=== PATIENT | male | born 1955 | race Caucasian/White ===

== ENCOUNTER → 2022-09-06 09:51 | Outpatient (BNVA) | payer MEDICARE, OTHER, SELFPAY | PROVIDERS: PCP Psychiatry & Neurology Neurology; Visit Provider Nurse Practitioner Family | DX: G20 Parkinson's disease (principal); R41.3 Other amnesia; M19.90 Unspecified osteoarthritis, unspecified site; Z79.899 Other long term (current) drug therapy | CPT/HCPCS: 99202 ==

== ENCOUNTER → 2023-02-02 07:56 | Outpatient (BNVA) | payer MEDICARE, OTHER, SELFPAY | PROVIDERS: Visit Provider Nurse Practitioner Family | DX: G20 Parkinson's disease (principal); G47.52 REM sleep behavior disorder; G47.62 Sleep related leg cramps | CPT/HCPCS: 99212 ==

== ENCOUNTER 2023-06-07 08:00 | Outpatient (AMB) | payer MEDICARE, OTHER, SELFPAY ==
--- NOTE | 2023-06-07 08:03 | MHC.OFFVIS ---
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 Allergies Iodinated Contrast Media Allergy (Severe, Verified 06/07/23 08:05) Anaphylaxis Suxamethonium chloride Allergy (Severe, Uncoded 06/07/23 08:05) Unknown Medication List - Last Reconciled 06/07/23 by ALVARO Luo bupropion HCl 300 mg PO QAM 30 days carbidopa-levodopa 23.75-95 mg ER (Rytary) 3 caps PO TID 90 days gabapentin 300 mg PO BID 90 days magnesium oxide 400 mg PO BEDTIME 30 days meloxicam 15 mg PO DAILY metoprolol succinate ER 50 mg PO DAILY omeprazole 20 mg PO DAILY 90 days pramipexole 0.125 - 0.25 mg (1 - 2 x 0.125 mg) PO TID 180 days HPI HPI Comments History of Present Illness Details 67-yr-old male presents for f/u visit. Pt denies any significant interval medical history changes. Pt was started on Meloxicam, which has been helping with his joint pain Pt's current PD medication regimen: Rytary 23.75-95mg 3 caps tid and Pramipexole 0.125-0.25mg po tid. ADL's: Ind Swallowing: rarely may cough when eating Drooling: none Orthostatic lightheadedness: none Constipation: Yes, managing w/ Miralax qod- however it can cause bothersome loose stools. Freezing: Denies Stiffness: Better Tremor: Very mild Falls: None Hallucinations: None Memory: He states terrible- more so STM, loses his train of thought- more frequent. Sometimes he has difficulty w/ certain exercises at his PD class- elena stepping in/out of the ladder. Sleep: Sleeping ok. The leg symptoms are better since increasing the Pramipexole. Exercise: Doing the [facility] PD exercise class. Plans to do a [employer] boxing class at the [facility]. [facility] Medical History HTN (hypertension) Psoriasis Surgical History H/O lumbosacral spine surgery History of hip surgery Hx laparoscopic cholecystectomy Family History Mother Uterine cancer Daughter Thyroid cancer Father Lung cancer Social History (Updated 06/07/23 @ 08:07 by Karla Thibodeaux CMA) Alcohol intake: current Alcohol intake frequency: holidays/special occasions only Patient Tobacco Use Status: Former Tobacco user Quit Date: approx 20 years ago Review of Systems Const All systems reviewed & are unremarkable except as noted in HPI and below Physical Exam Vital Signs: Last Vital Signs Pulse 71 06/07/23 08:08 BP 118/70 06/07/23 08:08 Pulse Ox 97 06/07/23 08:08 Oxygen Delivery Method Room Air 06/07/23 08:08 Const General: cooperative and no acute distress Resp Effort & Inspection: normal respiratory effort and able to speak in complete sentences Neuro Other: Expression: Mild decreased expression and blink Voice: Soft voice Tremor: No postural tremor today. Tone: BUE tone, more so in RUE. Right hand atrophy and posturing. Dyskinesia: None FFM: Bradykineisa, more so on right Foot taps: Bradykinesia, more so on right Gait: Stands ok, slight stoop, decreased arm swing- more so on right, steps ok but low floor clearance, overall steady gait. Psych: Pleasant affect. General: oriented to person, oriented to place and oriented to time Assessment & Plan Assessment & Plan (1) Parkinson's disease: Code(s): G20 - Parkinson's disease (2) Constipation: Code(s): K59.00 - Constipation, unspecified (3) Poor short-term memory: Code(s): R41.3 - Other amnesia Plan Continue Rytary 23.75-95mg- 3 caps po TID Continue magnesium 400mg qhs- for leg cramps. Continue Pramipexole 0.125-0.25mg po tid- 3 hrs before bed, 1 hr before bed, and at bedtime. Continue Gabapentin 300mg bid. May adjust Miralx to 1/2 - 3/4 capful qd-qod- in hopes this alleviates excess loss stools. Continue regular exercise, including PD exercise classes. Will f/u on order for baseline neuropsych testing. f/u in 3-4 months or sooner prn Medications: Refilled bupropion HCl 300 mg PO QAM 30 tabs 3RF 30 days Coding Level of Care Code Est Pt Level 4 (40490) Diagnoses Parkinson's disease G20 Constipation K59.00 Poor short-term memory R41.3
[2023-06-07 08:08] VITALS: BP 118/70; PULSE 71; O2SAT 97
== END 2023-06-07 08:50 | disposition home or self-care (01) ==
PROVIDERS: Visit Provider Nurse Practitioner Family
DX: G20 Parkinson's disease (principal); K59.00 Constipation, unspecified; R41.3 Other amnesia
CPT/HCPCS: 99214

== ENCOUNTER → 2023-06-07 08:00 | Outpatient (BNVA) | payer MEDICARE, OTHER, SELFPAY | PROVIDERS: Visit Provider Nurse Practitioner Family | DX: G20 Parkinson's disease (principal); K59.00 Constipation, unspecified; R41.3 Other amnesia; Z79.899 Other long term (current) drug therapy | CPT/HCPCS: 99212 ==

== ENCOUNTER 2023-10-06 07:59 | Outpatient (AMB) | payer MEDICARE, OTHER, SELFPAY ==
--- NOTE | 2023-10-06 08:03 | MHC.OFFVIS ---
Intake Vital Signs 10/06/23 08:04 Height 6 ft 1 in Weight 208 lb BMI 27.4 BP 126/78 Blood Pressure Location Rt brachial Position Sitting Pulse 74 Pulse Source Pulse Oximeter Pulse Oximetry (%) 97 Oxygen Delivery Method Room Air Intake Visit Reasons: 4m follow up parkinsons/ Confirmed Intake Note: Patient presents for 4 month follow up.my neuropathy on my feet is getting worst and my balance is off. Allergies Iodinated Contrast Media Allergy (Severe, Verified 10/06/23 08:06) Anaphylaxis Suxamethonium chloride Allergy (Severe, Uncoded 10/06/23 08:06) Unknown Medication List - Last Reconciled 10/06/23 by ALVARO Luo bupropion HCl 300 mg PO QAM 30 days carbidopa-levodopa 23.75-95 mg ER (Rytary) 3 caps PO TID 90 days gabapentin 300 mg PO BID 90 days magnesium oxide 400 mg PO BEDTIME 30 days meloxicam 15 mg PO DAILY metoprolol succinate ER 50 mg PO DAILY omeprazole 20 mg PO DAILY 90 days pramipexole 0.125 - 0.25 mg (1 - 2 x 0.125 mg) PO BID 180 days HPI HPI Comments History of Present Illness Details 68-yr-old male presents for f/u visit, accompnaied by his . Pt reports the following interval medical history changes: He had a recent ER eval for chest pain- work-up and f/u cardiology eval- was negtaive for cardiogenic cause. Pt's current PD medication regimen: Rytary 23.75-95mg- 3 caps po TID, Pramipexole 0.125mg po bid- 3 hrs before bed and at bedtime. Do medication effects last between doses: yes Pt's primary concerns are: Feels his neuropathy is worse- BLE mid-calf to toes feels cold to the touch. BLE, more so left, can feel like his foot is sliding/moving but is not. Is having numbing pain. ADL's: Ind Swallowing: No current issues Drooling: very mild Orthostatic lightheadedness: no orthostatic lightheadedness, but sometimes when standing for a while he can feel off. Constipation: Yes, managing w/ Miralax prn. Freezing: Denies Stiffness: Does have stiffness Tremor: Rarely mild Falls: None Hallucinations: None Memory: He states his STM is poor. Sleep: Sleeping ok. The leg symptoms are better since increasing the Pramipexole. Exercise: Doing the [facility] PD exercise class. Was able to find a PD class when at the [facility]- did a upside down bike/cognitive tx. [facility] Medical History (Updated 10/06/23 @ 20:31 by ALVARO Luo) Parkinson's disease Psoriasis HTN (hypertension) Surgical History History of hip surgery Hx laparoscopic cholecystectomy H/O lumbosacral spine surgery Family History Mother Uterine cancer Daughter Thyroid cancer Father Lung cancer Social History Alcohol intake: current Alcohol intake frequency: holidays/special occasions only Patient Tobacco Use Status: Former Tobacco user Quit Date: approx 20 years ago Review of Systems Const All systems reviewed & are unremarkable except as noted in HPI and below Physical Exam Vital Signs: Last Vital Signs Pulse 74 10/06/23 08:04 BP 126/78 10/06/23 08:04 Pulse Ox 97 10/06/23 08:04 Oxygen Delivery Method Room Air 10/06/23 08:04 BMI result Body Mass Index 27.4 Const General: cooperative and no acute distress Resp Effort & Inspection: normal respiratory effort and able to speak in complete sentences Neuro Other: General A&O x's Expression: Mild decreased expression and blink Voice: Soft voice Tremor: No postural tremor today. Tone: BUE tone, more so in RUE. Right hand atrophy and posturing. Dyskinesia: None FFM: Bradykineisa, more so on right Foot taps: Bradykinesia, more so on right Gait: Stands ok, slight stoop, decreased arm swing- more so on right, low floor clearance, overall steady gait. Psych: Pleasant affect. Assessment & Plan Assessment & Plan (1) Parkinson's disease without dyskinesia: Code(s): G20.A1 - Parkinson's disease without dyskinesia, without mention of fluctuations (2) Constipation: Code(s): K59.00 - Constipation, unspecified (3) Nocturnal leg cramps: Code(s): G47.62 - Sleep related leg cramps (4) REM sleep behavior disorder: Code(s): G47.52 - REM sleep behavior disorder (5) Poor short-term memory: Code(s): R41.3 - Other amnesia (6) Peripheral neuropathy: Code(s): G62.9 - Polyneuropathy, unspecified Plan Continue Rytary 23.75-95mg- 3 caps po TID Continue magnesium 400mg qhs- for leg cramps. Continue Pramipexole 0.125-0.25mg po bid- 3 hrs before bed and at bedtime. Continue Gabapentin 300mg bid. Continue Miralx to 1/2 - 3/4 capful qd-qod prn constipation. May trial OTC Nervive/Alpha-lipoic acid for neuropathy s/s Try to keep core warm and use warmer socks etc to decrease peripheral coldness. Continue regular exercise, including PD exercise classes. Baseline neuropsych testing as scheduled in Nov 2023. ? f/u in 4 months or sooner prn Medications: Changed From pramipexole 3 hrs before bed, 1 hr before bed, and at bedtime 0.125 - 0.25 mg (1 - 2 x 0.125 mg) PO TID 180 days 180 tabs 3RF To pramipexole 3 hrs before bed and at bedtime 0.125 - 0.25 mg (1 - 2 x 0.125 mg) PO BID 180 days 180 tabs 3RF Coding Level of Care Code Est Pt Level 4 (57250) Diagnoses Parkinson's disease without dyskinesia G20.A1 Constipation K59.00 Nocturnal leg cramps G47.62 REM sleep behavior disorder G47.52 Poor short-term memory R41.3 Peripheral neuropathy G62.9
[2023-10-06 08:04] VITALS: BP 126/78; PULSE 74; O2SAT 97; BMI 27.4
== END 2023-10-06 08:54 | disposition home or self-care (01) ==
PROVIDERS: Visit Provider Nurse Practitioner Family
DX: G20.A1 Parkinson's disease without dyskinesia, without mention of fluctuations (principal); K59.00 Constipation, unspecified; G47.62 Sleep related leg cramps; G47.52 REM sleep behavior disorder; R41.3 Other amnesia; G62.9 Polyneuropathy, unspecified
CPT/HCPCS: 99214

== ENCOUNTER → 2023-10-06 07:59 | Outpatient (BNVA) | payer MEDICARE, OTHER, SELFPAY | PROVIDERS: Visit Provider Nurse Practitioner Family | DX: G20.A1 Parkinson's disease without dyskinesia, without mention of fluctuations (principal); K59.00 Constipation, unspecified; G47.62 Sleep related leg cramps; G47.52 REM sleep behavior disorder; G62.9 Polyneuropathy, unspecified; R41.3 Other amnesia | CPT/HCPCS: 99212 ==

== ENCOUNTER 2024-03-01 07:52 | Outpatient (AMB) | payer MEDICARE, OTHER, SELFPAY ==
--- NOTE | 2024-03-01 07:58 | MHC.OFFVIS ---
Vital Signs 03/01/24 07:59 Height 6 ft 1 in Weight 206 lb BMI 27.2 BP 120/74 Blood Pressure Location Rt brachial Position Sitting Pulse 71 Pulse Source Pulse Oximeter Pulse Oximetry (%) 96 Oxygen Delivery Method Room Air Intake Visit Reasons: 4m follow up parkinsons-CONF Intake Note: Patient presents for 4 month follow up parkinson's Allergies Iodinated Contrast Media Allergy (Severe, Verified 03/01/24 08:05) Anaphylaxis Suxamethonium chloride Allergy (Severe, Uncoded 03/01/24 08:05) Unknown HPI Comments Details: 68-yr-old male presents for f/u visit. Pt is accompanied by his . Pt denies any significant interval medical history changes. Pt's primary concerns are: Feels that the Rytary makes him off-balance. Pt's current PD medication regimen: Rytary 23.75-95mg- 3 caps po TID, Pramipexole 0.125mg po bid- 3 hrs before bed and at bedtime. Do medication effects last between doses: does not notice. Neuro-psych eval results were c/w MCI. ADL's: Ind. Some difficulty w/ putting a letter in an envelope or tying a trash bag. Swallowing: No current issues Drooling: very mild Orthostatic lightheadedness: no orthostatic lightheadedness, but sometimes when standing for a while he can feel off. Constipation: Yes, managing w/ Miralax prn. Freezing: Once- woke up dizzy and felt like his feet were stuck. Stiffness: Does have stiffness. Noticing right hand posturing more. Tremor: Rarely mild Falls: None Hallucinations: None Memory: He states his STM is poor. Some Sleep: Sleeping ok. Can have some leg cramps. Can sometimes have breakthrough restless legs when watching TV. Exercise: Doing the [facility] PD exercise class. Will be returning to the [facility]- will do a PD class when at the [facility]- did a upside down bike/cognitive tx. [facility] Medical History (Updated 03/01/24 @ 09:03 by ALVARO Luo) Parkinson's disease Psoriasis HTN (hypertension) Surgical History History of hip surgery Hx laparoscopic cholecystectomy H/O lumbosacral spine surgery Family History Mother Uterine cancer Daughter Thyroid cancer Father Lung cancer Social History Alcohol intake: current Alcohol intake frequency: holidays/special occasions only Patient Tobacco Use Status: Former Tobacco user Quit Date: approx 20 years ago Review of Systems Const All systems reviewed & are unremarkable except as noted in HPI and below Physical Exam Vital Signs: Last Vital Signs Pulse 71 03/01/24 07:59 BP 120/74 03/01/24 07:59 Pulse Ox 96 03/01/24 07:59 Oxygen Delivery Method Room Air 03/01/24 07:59 BMI result Body Mass Index 27.2 Const General: cooperative and no acute distress Resp Effort & Inspection: normal respiratory effort and able to speak in complete sentences Neuro Other: General A&O x's Expression: Mild decreased expression and blink Voice: Soft voice Tremor: No postural tremor today. Tone: BUE tone, more so in RUE. Right hand atrophy and posturing. Dyskinesia: None FFM: Bradykineisa, more so on right Foot taps: Bradykinesia, more so on right Gait: Stands ok, slight stoop, decreased arm swing- more so on right, low floor clearance, overall steady gait. Psych: Pleasant affect. Assessment & Plan Assessment & Plan (1) Parkinson's disease without dyskinesia: Code(s): G20.A1 - Parkinson's disease without dyskinesia, without mention of fluctuations Category: Medical (2) REM sleep behavior disorder: Code(s): G47.52 - REM sleep behavior disorder Category: Medical (3) Restless leg syndrome: Code(s): G25.81 - Restless legs syndrome Category: Medical (4) MCI (mild cognitive impairment): Code(s): G31.84 - Mild cognitive impairment of uncertain or unknown etiology Category: Medical Plan May try adjusting Rytary 23.75-95mg- from 3 caps po TID to 2 caps tid-qid- in hope sthis reduces off-balance sensation. Monitor for worsening stiffness, right hand posturing. Continue magnesium 400mg qhs- for leg cramps. Continue Pramipexole 0.125-0.25mg po bid- 3 hrs before bed and at bedtime. Continue Gabapentin 300mg qhs. Continue Miralx to 1/2 - 3/4 capful qd-qod prn constipation. May trial OTC Nervive/Alpha-lipoic acid for neuropathy s/s Try to keep core warm and use warmer socks etc to decrease peripheral coldness. Continue regular exercise, including PD exercise classes. Future considerations- hand/OT tx for right hand. ? f/u in 4 months or sooner prn Coding Level of Care Code Est Pt Level 4 (16255) Diagnoses Parkinson's disease without dyskinesia G20.A1 REM sleep behavior disorder G47.52 Restless leg syndrome G25.81 MCI (mild cognitive impairment) G31.84
[2024-03-01 07:59] VITALS: BP 120/74; PULSE 71; O2SAT 96; BMI 27.2
== END 2024-03-01 09:05 | disposition home or self-care (01) ==
PROVIDERS: Visit Provider Nurse Practitioner Family
DX: G20.A1 Parkinson's disease without dyskinesia, without mention of fluctuations (principal); G47.52 REM sleep behavior disorder; G25.81 Restless legs syndrome; G31.84 Mild cognitive impairment of uncertain or unknown etiology
CPT/HCPCS: 99214

== ENCOUNTER → 2024-03-01 07:52 | Outpatient (BNVA) | payer MEDICARE, OTHER, SELFPAY | PROVIDERS: Visit Provider Nurse Practitioner Family | DX: G20.A1 Parkinson's disease without dyskinesia, without mention of fluctuations (principal); G47.52 REM sleep behavior disorder; G25.81 Restless legs syndrome; G31.84 Mild cognitive impairment of uncertain or unknown etiology | CPT/HCPCS: 99212 ==

== ENCOUNTER 2024-09-18 08:10 | Outpatient (AMB) | payer MEDICARE, OTHER, SELFPAY ==
--- NOTE | 2024-09-18 09:18 | MHC.OFFVIS ---
Vital Signs 09/18/24 09:20 Height 6 ft 1 in Weight 206 lb BMI 27.2 BP 122/88 Blood Pressure Location Rt brachial Position Sitting Pulse 73 Pulse Source Pulse Oximeter Pulse Oximetry (%) 96 Oxygen Delivery Method Room Air Intake Visit Reasons: 7 Month F/U Accompanied by: Spouse Allergies Iodinated Contrast Media Allergy (Severe, Verified 09/18/24 09:23) Anaphylaxis Suxamethonium chloride Allergy (Severe, Uncoded 03/01/24 08:05) Unknown Medication List - Last Reconciled 09/18/24 by ALVARO Luo bupropion HCl XL 300 mg PO QAM 90 days carbidopa-levodopa 23.75-95 mg ER (Rytary) 3 caps PO QID 90 days gabapentin 300 mg PO BID 90 days magnesium oxide 400 mg PO BEDTIME PRN 90 days meloxicam 15 mg PO DAILY metoprolol succinate ER 50 mg PO DAILY omeprazole 20 mg PO DAILY 90 days pramipexole 0.125 - 0.25 mg (1 - 2 x 0.125 mg) PO BID 90 days Do you need a note to return to daycare/school/sports/work: No HPI Comments Details: Left-handed 68-yr-old male presents for f/u visit. Pt is accompanied by his . Pt has a bad case of Covid-19 in May- saw urgent care- was given a course of Plaxlovid. He was weak, shakier. Took him at least weeks to return to baseline. He is now living at the [facility] 8 months of the year. He has had increased right shoulder pain- has seen DR Ulloa at [facility]- was advised he will likely need a shoulder replacement. He has noticed more right hand finger curling. This has limited his ability to do some of his PD exercises such as the [employer] boxing class. He also had a bout of feeling like his legs were wrapped in saran wrap. He saw Dr. Garcia at his clinic at the [facility], was advised to consider nerve conduction study. Patient is considering. Patient does still have some numbness on the lower part of feet. The sensation that his feet are wrapped is intermittent. He is compliant with gabapentin 300 mg twice a day. He did start Nervive nerve relief- which she found beneficial, he stopped as he was worried about taking so many medications. In terms of his Parkinson's, patient reports: Current PD medication regimen: Rytary 23.75-95mg- 3 caps po TID or QID- depending on the day, Pramipexole 0.125mg po bid- 3 hrs before bed and at bedtime. ADL's: Ind. Some difficulty w/ putting his pants on. Swallowing: No current issues Drooling: very mild Orthostatic lightheadedness: no orthostatic lightheadedness Constipation: Yes, managing w/ Miralax prn. Freezing: Denies Stiffness: Everything is stiff. Occasional leg spasms. Noticing right hand posturing more. Tremor: Rarely mild Falls: He had a fall- going over a small retaining wall while wearing water shoes- his hip was a bit sore in sharif am. Hallucinations: None. Has had an episode fo feeling like his hand or feet are moving but they were not. Memory: He would like to discuss the neuropsych results. He states his STM is poor. Cognitive tasking activities, such as balancing his check book, is more challenging. Sleep: Sleeping ok. Can have some leg cramps. Can sometimes have breakthrough restless legs when watching TV. Exercise: Doing PD exercises at home. [facility] Medical History Parkinson's disease Psoriasis HTN (hypertension) Surgical History History of hip surgery Hx laparoscopic cholecystectomy H/O lumbosacral spine surgery Family History Mother Uterine cancer Daughter Thyroid cancer Father Lung cancer Social History Alcohol intake: current Alcohol intake frequency: holidays/special occasions only Patient Tobacco Use Status: Former Tobacco user Physical Exam Vital Signs: Last Vital Signs Pulse 73 09/18/24 09:20 BP 122/88 09/18/24 09:20 Pulse Ox 96 09/18/24 09:20 Oxygen Delivery Method Room Air 09/18/24 09:20 BMI result Body Mass Index 27.2 Const General: cooperative and no acute distress Resp Effort & Inspection: normal respiratory effort and able to speak in complete sentences Neuro Other: General A&O x's Expression: Mild decreased expression and blink Voice: Soft voice Tremor: No rest or postural tremor today. Tone: BUE tone, more so in RUE. Right hand atrophy and fingers posturing in flexion- which do extend with active range of motion. Dyskinesia: None FFM: Bradykineisa, more so on right Foot taps: Bradykinesia, more so on right Gait: Stands ok, slight stoop, decreased arm swing- more so on right, low floor clearance, overall steady gait. Psych: Pleasant affect. Assessment & Plan Assessment & Plan (1) Parkinson's disease without dyskinesia: Code(s): G20.A1 - Parkinson's disease without dyskinesia, without mention of fluctuations Category: Medical (2) REM sleep behavior disorder: Code(s): G47.52 - REM sleep behavior disorder Category: Medical (3) Restless leg syndrome: Code(s): G25.81 - Restless legs syndrome Category: Medical (4) MCI (mild cognitive impairment): Comment: Neuro-psych eval results were c/w MCI. Code(s): G31.84 - Mild cognitive impairment of uncertain or unknown etiology Category: Medical Plan Increase Rytary 23.75-95mg- from 3 caps po TID to 3 caps q.i.d.- in hopes this lessens stiffness, right hand posturing, and possible mild bradyphrenia symptoms. Continue magnesium 400mg, may take qhs p.r.n.- for leg cramps. Continue Pramipexole 0.125-0.25mg po bid- 3 hrs before bed and at bedtime. Continue Gabapentin 300mg b.i.d. Continue bupropion XL 300 mg q.a.m. Continue Miralx to 1/2 - 3/4 capful qd-qod prn constipation. Resume OTC Nervive/Alpha-lipoic acid, as this was previously beneficial for BLE neuropathy s/s. Reviewed previous neuro psych results of MCI, including diagnosis and strategies to reduce progression, such as optimizing cardiovascular risk factors, engaging in regular social and cognitive stimulating activities, and continuing to exercise on a regular basis. Continue regular exercise, including PD exercise classes. Patient advised to check the [place] Parkinson disease association website to find an up-to-date list of local PD exercise classes. Will refer patient for OT eval and treat of right hand posturing, eval for possible right arm nocturnal splint. Future considerations: BLE EMG/NCS as suggested by Dr. Garcia. As patient is spending the majority of his year now at the [facility], but still spending at least 4 months in [facility], it is reasonable that he may establish care with a neurologist closer to his home at the [facility] and continue care with us for when he is in [facility]. ? f/u in 6 months or sooner prn Orders: Orders OT Evaluation and Treatment Today G20.A1 - Parkinson's disease without dyskinesia, without mention of fluctuations, M25.641 - Stiffness of right hand, not elsewhere classified Medications: Changed From magnesium oxide may hold for loose stools 400 mg PO BEDTIME 30 days 30 tabs 6RF To magnesium oxide may hold for loose stools 400 mg PO BEDTIME 90 days PRN 90 tabs 1RF muscle cramps From carbidopa-levodopa 23.75-95 mg ER (Rytary) 3 caps PO TID 90 days 810 caps 1RF To carbidopa-levodopa 23.75-95 mg ER (Rytary) 3 caps PO QID 90 days 1,080 caps 1RF From pramipexole 3 hrs before bed and at bedtime 0.125 - 0.25 mg (1 - 2 x 0.125 mg) PO BID 180 days 180 tabs 6RF To pramipexole 3 hrs before bed and at bedtime 0.125 - 0.25 mg (1 - 2 x 0.125 mg) PO BID 90 days 180 tabs 1RF Refilled bupropion HCl XL 300 mg PO QAM 90 days 90 tabs 1RF Coding Level of Care Code Est Pt Level 4 (35248) Diagnoses Parkinson's disease without dyskinesia G20.A1 REM sleep behavior disorder G47.52 Restless leg syndrome G25.81 MCI (mild cognitive impairment) G31.84
[2024-09-18 09:20] VITALS: BP 122/88; PULSE 73; O2SAT 96; BMI 27.2
== END 2024-09-18 10:09 | disposition home or self-care (01) ==
PROVIDERS: PCP Nurse Practitioner Primary Care; Visit Provider Nurse Practitioner Family
DX: G20.A1 Parkinson's disease without dyskinesia, without mention of fluctuations (principal); G47.52 REM sleep behavior disorder; G25.81 Restless legs syndrome; G31.84 Mild cognitive impairment of uncertain or unknown etiology
CPT/HCPCS: 99214

== ENCOUNTER → 2024-09-18 08:10 | Outpatient (BNVA) | payer MEDICARE, OTHER, SELFPAY | PROVIDERS: PCP Nurse Practitioner Primary Care; Visit Provider Nurse Practitioner Family | DX: G20.A1 Parkinson's disease without dyskinesia, without mention of fluctuations (principal); G47.52 REM sleep behavior disorder; G25.81 Restless legs syndrome; G31.84 Mild cognitive impairment of uncertain or unknown etiology | CPT/HCPCS: 99212 ==

== ENCOUNTER 2025-04-02 13:08 | Outpatient (AMB) | payer MEDICARE, OTHER, SELFPAY ==
--- NOTE | 2025-04-02 12:11 | MHC.OFFVIS ---
Intake Visit Reasons: Follow Up 6mo (LVM TO R/S) See comments Accompanied by: Self / Same As Patient Allergies Iodinated Contrast Media Allergy (Severe, Verified 04/02/25 12:14) Anaphylaxis Suxamethonium chloride Allergy (Severe, Uncoded 03/01/24 08:05) Unknown Medication List - Last Reconciled 04/02/25 by ALVARO Luo bupropion HCl XL 300 mg PO QAM 90 days carbidopa-levodopa 23.75-95 mg ER (Rytary) 3 caps PO QID 90 days gabapentin 300 mg PO BID 90 days magnesium oxide 400 mg PO BEDTIME PRN 90 days meloxicam 15 mg PO DAILY metoprolol succinate ER 50 mg PO DAILY omeprazole 20 mg PO DAILY 90 days pramipexole 0.125 - 0.25 mg (1 - 2 x 0.125 mg) PO BID 90 days HPI Comments Details: Left-handed 69-yr-old male presents for f/u tele visit for Parkinson's. Pt is accompanied by his . Visit was conducted via phone, as patient could not utilize engage[employer] technology today. Since the last visit, pt developed a recurrence of low back pain w/ left sciatica symptoms. This Thus, he has not been able to exercise regularly. He is now living at the [facility] 8 months of the year. He has had increased right shoulder pain- has seen DR Ulloa at [facility]- was advised he will likely need a shoulder replacement. He has noticed more right hand finger curling. This has limited his ability to do some of his PD exercises such as the [employer] boxing class. He also had a bout of feeling like his legs were wrapped in saran wrap. He saw Dr. Garcia at his clinic at the [facility], was advised to consider nerve conduction study. Patient is considering. Patient does still have some numbness on the lower part of feet. The sensation that his feet are wrapped is intermittent. He is compliant with gabapentin 300 mg twice a day. He did start Nervive nerve relief- which she found beneficial, he stopped as he was worried about taking so many medications. In terms of his Parkinson's, patient reports: Current PD medication regimen: Rytary 23.75-95mg- 3 caps po TID or QID- depending on the day, Pramipexole 0.125mg po bid- 3 hrs before bed and at bedtime. ADL's: Ind. Some difficulty w/ putting his pants on. Swallowing: No current issues Drooling: very mild Orthostatic lightheadedness: no orthostatic lightheadedness Constipation: Yes, managing w/ Miralax prn. Freezing: Denies Stiffness: Everything is stiff. Occasional leg spasms. Noticing right hand posturing more. Tremor: Rarely mild Falls: He had a fall- going over a small retaining wall while wearing water shoes- his hip was a bit sore in sharif am. Hallucinations: None. Has had an episode fo feeling like his hand or feet are moving but they were not. Memory: He would like to discuss the neuropsych results. He states his STM is poor. Cognitive tasking activities, such as balancing his check book, is more challenging. Sleep: Sleeping ok. Can have some leg cramps. Can sometimes have breakthrough restless legs when watching TV. Exercise: Doing PD exercises at home. [facility] Medical History Parkinson's disease Psoriasis HTN (hypertension) Surgical History History of hip surgery Hx laparoscopic cholecystectomy H/O lumbosacral spine surgery Family History Mother Uterine cancer Daughter Thyroid cancer Father Lung cancer Social History Alcohol intake: current Alcohol intake frequency: holidays/special occasions only Patient Tobacco Use Status: Former Tobacco user Physical Exam Const General: cooperative and no acute distress Orientation/consciousness: patient oriented x3 Resp Effort & Inspection: normal respiratory effort and able to speak in complete sentences Neuro General: patient oriented x3 Cognition (Neuro): normal cognition Psych Mental Status: mental status grossly normal Attitude: cooperative Telehealth Telehealth Telehealth Platform: [facility] Location of provider rendering services: practice address Location of patient: address on file Patient Identification confirmed using: Name, : Yes Telehealth method: voice only Patient verbally consented to treatment: Yes Patient verbally consented to billing insurance company: Yes Patient informed of any privacy concerns related to visit: Yes Minutes spent on Phone/Video with Pt.: 25 Assessment & Plan Assessment & Plan (1) Parkinson's disease without dyskinesia: Code(s): G20.A1 - Parkinson's disease without dyskinesia, without mention of fluctuations Category: Medical Qualifiers: Fluctuating manifestations: without fluctuating manifestations Qualified Code(s): G20.A1 - Parkinson's disease without dyskinesia, without mention of fluctuations (2) REM sleep behavior disorder: Code(s): G47.52 - REM sleep behavior disorder Category: Medical (3) Restless leg syndrome: Code(s): G25.81 - Restless legs syndrome Category: Medical (4) MCI (mild cognitive impairment): Comment: Neuro-psych eval results were c/w MCI. Code(s): G31.84 - Mild cognitive impairment of uncertain or unknown etiology Category: Medical Plan Continue Rytary 23.75-95mg- 3 caps q.i.d. Continue magnesium 400mg, may take qhs p.r.n.- for leg cramps. Continue Pramipexole 0.125-0.25mg po bid- 3 hrs before bed and at bedtime. Continue Gabapentin 300mg b.i.d. Continue bupropion XL 300 mg q.a.m. Continue Miralax to 1/2 - 3/4 capful qd-qod prn constipation. When able, increase regular exercise, including PD exercise classes. Future considerations: Follow-up neuropsych testing to assess status of mild cognitive impairment For lower extremity neuropathy and recent bout of sciatica: Consider increasing gabapentin- such as 300 mg 4 times a day or 300 mg twice a day and 600 mg at bedtime. Consider resuming alpha lipoic acidm, as this was previously beneficial. BLE EMG/NCS as ordered by Dr. Garcia. Follow-up with Dr. Garcia as scheduled. As patient is spending the majority of his year now at the [facility], but still spending at least 4 months in [facility], it is reasonable that he may establish care with a neurologist closer to his home at the [facility] and continue care with us for when he is in [facility]. ? f/u in 6 months or sooner prn Medications: Changed From carbidopa-levodopa 23.75-95 mg ER 3 caps PO QID 90 days 1,080 caps 1RF To carbidopa-levodopa 23.75-95 mg ER (Rytary) 3 caps PO QID 1,080 caps 1RF 90 days Refilled magnesium oxide may hold for loose stools 400 mg PO BEDTIME PRN 90 tabs 1RF muscle cramps 90 days bupropion HCl XL 300 mg PO QAM 90 tabs 1RF 90 days pramipexole 3 hrs before bed and at bedtime 0.125 - 0.25 mg (1 - 2 x 0.125 mg) PO BID 180 tabs 1RF 90 days Coding Level of Care Code Tele Est Pt Level 4 (92460) Diagnoses Parkinson's disease without dyskinesia or fluctuating manifestations G20.A1 Fluctuating manifestations: without fluctuating manifestations REM sleep behavior disorder G47.52 Restless leg syndrome G25.81 MCI (mild cognitive impairment) G31.84
--- OUTSIDE RECORDS SUMMARY | 2025-04-02 14:12 | XMS_ITS | Encounter Summary ---
Author Organization [facility] Address [address] [place] [address] Care Team Providers Care Regional Economic Liaison Name Role Phone Tsering Mcnultya KAMILAH Primary Care Provider [phone] Reason for Visit * Reason Onset Date Comments Med Refill 02/11/2025 Encounter Details Date Type Department Care Team (Late st Contact Info) Description 02/11/2025 Refill [facility] [address] [place], [place] [address] Mendoza Garcia MD [address] [place] [address] Parkinson's disease without dyskinesia, with fluctuating manifestations (CMS-HCC) Social History Tobacco Use Types Packs/Day Years Used Date Smoking Tobacco: Former Cigarettes Smokeless Tobacco: Never Alcohol Use Standard Drinks/Week Comments Yes 0 (1 standard drink = 0.6 oz pur e alcohol) 1-2 glasses of wine per week Sex and Gender Information Value Date Recorded Sex Assigned at Male 03/15/2024 2:20 PM EDT Legal Sex Male 2:16 PM EDT Gender Identity Male 05/20/2024 4:35 PM EDT Sexual Orientation Choose not to disclose 2023 4:35 PM EDT documented as of this encounter Plan of Treatment Upcoming Encounters Date Type Department Care Team (Late st Contact Info) Description 05/06/2025 8:00 AM EDT Procedure Visit [facility] [address] [place] [address] Mendoza Garcia MD [address] [place] [id number] 04/22/2026 3:20 PM EDT Office Visit [facility] [address] [place] [address] Mendoza Garcia MD [address] [place] [id number] documented as of this encounter Visit Diagnoses Diagnosis Parkinson's disease without dyskinesia, with fluctuating manifestations (CMS-HCC) documented in this encounter Care Teams Regional Economic Liaison Relationship Specialty Start Date End Date Tamika Mcnulty NP [address] [place] [address] PCP - General Neurology 03/06/25 documented as of this encounter
--- OUTSIDE RECORDS SUMMARY | 2025-04-02 14:12 | XMS_ITS | Referral Summary ---
Author Organization [facility] Address [address] [place] [address] Care Team Providers Care Auto Refinisher Name Role Phone Ugo Valerio Primary Care Provider [phone] Allergies Active Allergy Reactions Criticality Noted Date Comments Iodinated Contrast Media Unknown 03/21/2018 Succinylcholine Paralysis 08/04/2021 Medications betamethasone dipropionate (DIPROLENE) 0.05 % ointment APPLY TO ARMS AND LEGS TWICE A DAY ON WEEKENDS AVOID FACE, GROIN, ARMPITS 3 8 Active calcipotriene (DOVONOX) 0.005 % ointment APPLY TO ARMS AND LEGS TWICE A DAY 11 8 Active gabapentin (NEURONTIN) 300 mg capsule TAKE 1 CAPSULE BY MOUTH TWICE A DAY NEEDED 0 8 Active melatonin 3 mg tabletIndications :RBD (REM behavioral disorder) TAKE 1 TABLET NIGHTLY. TAKE 30-60 MINUTES PRIOR TO GOING TO SLEEP AT THE SAME TIME EVERY NIGH 90 tablet 3 0 Active buPROPion XL (WELLBUTRIN XL) 150 mg tablet Take 150 mg by mouth once a day. 1 Active metoprolol succinate XL (TOPROL XL) 50 mg tablet Take 50 mg by mouth once a day. 1 Active omeprazole (PriLOSEC) 20 mg capsule Take 20 mg by mouth once a day. 1 Active Rytary 23.75-95 mg capsule Take 3 capsules by mouth 3 times a day. 1 Active sucralfate (CARAFATE) 1 gram tablet Take 1 g by mouth as needed. 1 Active Active Problems Problem Noted Date Diagnosed Date REM sleep behavior disorder 08/03/2018 Cervical stenosis of spinal canal 05/02/2018 Parkinson disease 05/02/2018 Memory loss 03/21/2018 Unsteadiness 03/21/2018 Idiopathic peripheral neuropathy 03/21/2018 Neck pain 03/21/2018 Right hand weakness 03/21/2018 Atrophy of right hand muscles 03/21/2018 Resolved Problems Problem Noted Date Diagnosed Date Resolved Date Bradykinesia 03/21/2018 05/02/2018 Immunizations Immunization Administration Dates Next Due Covid-19, Pfizer, mRNA, [place] valent, PF 30 mcg/0.3 mL dose (for ages 12 and older) 01/01/2021,12/09/2020 Influenza, Injectable, Quadrivalent Preservative Free 07/08/2021,06/28/2020 Zoster Vaccine Recombinant 03/24/2021,10/24/2020 Social History Tobacco Use Types Packs/Day Years Used Date Smoking Tobacco: Never Smokeless Tobacco: Never Sex and Gender Information Value Date Recorded Sex Assigned at Male 08/03/2021 4:42 PM EDT Legal Sex Male 10:45 AM EDT Gender Identity Male 08/03/2021 4:42 PM EDT Sexual Orientation Straight 08/03/2021 4: 42 PM EDT Last Filed Vital Signs Vital Sign Reading Time Taken Comments Blood Pressure 124/70 08/04/2021 10:13 AM EDT Pulse 68 08/04/2021 10:13 AM EDT Temperature - - Respiratory Rate - - Oxygen Saturation 98% 03/21/2018 1:39 PM EDT Inhaled Oxygen Concentration - - Weight 92.1 kg (203 lb) 08/04/2021 10:13 AM EDT Height 185.4 cm (6' 1 ) 08/04/2021 10:13 AM EDT Body Mass Index 26.78 08/04/2021 10:13 AM EDT Plan of Treatment Not on file Insurance [facility] Care Teams Auto Refinisher Relationship Specialty Start Date End Date Ugo Valerio [address] [place] [id number] PCP - General Internal Medicine 02/24/18
--- OUTSIDE RECORDS SUMMARY | 2025-04-02 14:12 | XMS_ITS | Clinical Summary ---
Author Organization [facility] [address] [facility] Building Address [address] [place] [phone] Phone Care Team Providers Care Epic Kaleidoscope Analyst Name Role Phone AnuelSpencer floresedison TRIANA Primary Care Provider [phone] Allergies Active Allergy Reactions Criticality Noted Date Comments Etodolac 04/08/2022 Iodinated Contrast Media 10/15/2020 Iodine 04/08/2022 Succinylcholine 04/08/2022 Medications pramipexole di-HCl (PRAMIPEXOLE ORAL) Take 25 mg by mouth daily. Active acetaminophen (TYLENOL) 325 mg tablet Take 500 mg by mouth as needed. Active buPROPion XL (WELLBUTRIN XL) 300 mg 24 hr tablet Take 1 Tablet by mouth every morning. Active carbidopa-levod opa (Rytary) 23.75-95 mg per XR capsule Take 3 Tablets by mouth 3 times daily. Active gabapentin (NEURONTIN) 300 mg capsule Take 1 Capsule by mouth at bedtime. Active vit A/vit C/vit E/zinc/copper (PRESERVISION AREDS ORAL) Take 1 tablet by mouth 1 (one) time each day. Active omeprazole (PriLOSEC) [address] capsule Take 1 capsule (20 mg total) by mouth 1 (one) time each day. 90 each 1 10/24/2024 Active metoprolol succinate (TOPROL-XL) 50 mg 24 hr tabletIndicatio ns:Palpitations TAKE 1 TABLET BY MOUTH EVERY DAY 90 tablet 3 11/26/2024 Active meloxicam (MOBIC) 15 mg tablet TAKE 1 TABLET (15 MG TOTAL) BY MOUTH ONE TIME EACH DAY. 90 tablet 02/13/2025 Active Active Problems Problem Noted Date Diagnosed Date Abdominal aortic aneurysm (A AA) without rupture ([facility] V24) 11/05/2024 Chest pain 09/23/2023 Overview (09/24/2024): Last Assessment & Plan: Patient with complaints of chest discomfort. EKG with no dynamic changes lab normal high sensitive troponin. And a chest x-ray with no acute abnormalities. Some mild scoliosis and degenerative changes of the spinal identified. Patient's pain is very atypical for angina.. Patient has been active today without recurrent pain. I have told the patient and his that if the pain recurs to let us know we could consider a stress test at that point but this pain is too atypical to be angina. With no supporting documentation at this time. So the patient he can continue to exercise as long as he is having no pain Carotid stenosis 05/24/2023 Overview (09/24/2024): Last Assessment & Plan: Patient continues to follow with [facility] vascular services and recent carotid duplex reviewed as outlined in detailed above. Assessment & Plan (10/15/2024 9:00 AM EST): Orders: ECG 12 lead Constipation 05/24/2023 Multiple thyroid nodules 05/24/2023 Neuropathy 05/24/2023 Parkinson's disease without dyskinesia or fluctuating manifestations ([facility] V24, [facility] V28) 05/24/2023 Polyarthritis 05/24/2023 Psoriasis 05/24/2023 Other hyperlipidemia 10/15/2020 Overview (09/24/2024): Last Assessment & Plan: Lipids are monitored by his primary care provider. Primary hypertension 10/15/2020 Overview (09/24/2024): Last Assessment & Plan: Patient's blood pressure under excellent control with a reading today of 132/84. He will continue with metoprolol. Palpitations 10/15/2020 Overview (09/24/2024): Last Assessment & Plan: Patient denies any recurrent palpitations and continues on metoprolol as prescribed. Assessment & Plan (10/15/2024 1:11 PM EST): Patient has noted increase in frequency of palpitations. Patient was sent for Holter monitor. Thyroid magnesium and potassium levels will be checked. Orders: Cardiac holter monitor (<= 48 hours); Future Thyroid stimulating hormone with reflex free T4; Future Magnesium; Future Basic metabolic panel; Future Immunizations Name Administration Dates Next Due COVID-19 (Pfizer/Comirnaty) 12yo and older 08/03 Influenza Quadravalent, 0.5m l (Fluad) 65yo and older 08/03/2024 Influenza Quadravalent, MDCK , 0.5ml, preservative free (Flucelvax) 6mo and older 07/07/2018 Influenza trivalent, 0.5mL ( Fluzone High-dose) 65yo and older 08/19/2023,07/08/2021,06/28/2020 Influenza trivalent, with pr eservative (Fluzone; Afluria) 6mo and older 07/06/2019 Pneumococcal conjugate 20 va lent (Prevnar 20, PCV 20) 2mo and older 05/24/2023 Pneumococcal polysaccharide 23 valent (Pneumovax 23) 2yo and older 10/10/2016 Zoster recombinant (Shingrix ) 19yo and older 03/24/2021,10/24/2020 Surgical History Surgery Date Site/Laterality Comments HIP ARTHROPLASTY Left PROCEDURE: HISTORICAL HIP REPLACEMENT OTHER SURGICAL HISTORY Right PROCEDURE: HISTORICAL ARM SURGERY BACK SURGERY PROCEDURE: HISTORICAL BACK SURGERY; COMMENT: lumbar CHOLECYSTECTOMY PROCEDURE: HISTORICAL CHOLECYSTECTOMY JOINT REPLACEMENT 2016 SPINE SURGERY 1998? Medical History Medical History Date Comments Hyperlipidemia DX:Hyperlipidemi a Essential hypertension DX:Essent ial hypertension Chest pain DX:Chest pain Parkinson's disease (CMS/HCC V24, CMS/HCC V28) DX:Parkinson's disease (HCC) Osteoarthritis of right shoulder DX:Osteoarthritis of right shoulder Family History Medical History Relation Name Comments Other cancer Daughter thyroid Lung cancer Father Uterine cancer Mother Relation Name Status Comments Daughter Alive Father Mother Sister Alive Son Alive Social History Tobacco Use Types Packs/Day Years Used Date Smoking Tobacco: Former Cigarettes 2 10 Q uit: 10/03/1992 Smokeless Tobacco: Never Tobacco Cessation:Counseling Given: Not Answered Alcohol Use Standard Drinks/Week Comments Yes 3 (1 standard drink = 0.6 oz pur e alcohol) Housing Instability Answer Date Recorde d Are you worried that in the next 2 months you may not have stable housing? No 10/22/2024 Food Access & Nutrition Answer Date Rec orded Do you have access to a vari ety of food including fruits and vegetables? Yes 10/22/2024 Health Literacy Answer Date Recorded How often do you need to hav e someone help you when you read instructions, pamphlets, or other written material from your doctor or pharmacy? Never 10/22/2024 Caregiver: How often do you need to have someone help you when you read instructions, pamphlets, or other written material from your doctor or pharmacy? Not on file 10/22/2024 Financial Risk Answer Date Recorded How hard is it for you to pa y for the very basics like food, housing, medical care, and air conditioning / heating? Not very hard 10/22/2024 Transportation Answer Date Recorded Has the lack of transportati on kept you from meetings, work, or from getting things needed for daily living? No Has the lack of transportati on kept you from medical appointments or from getting medications? No 10/22/2024 Social Isolation Answer Date Recorded How often do you feel lonely or isolated from those around you? Sometimes 10/22/2024 Food Risk Answer Date Recorded Within the past 12 months we worried whether our food would run out before we got money to buy more. Never true 10/22/2024 Within the past 12 months th e food we bought just didn't last and we didn't have money to get more. Never true 10/22/2024 Dependent Care Answer Date Recorded Do you need help finding or paying for care for your loved ones. For example, child care director or elderly care for an older adult? No 10/22/2024 Education Answer Date Recorded Do you think completing more education or training, like finishing a GED, going to college, or learning a trade, would be helpful for you? No 10/22/2024 Employment and Income Answer Date Recor ded During the last four weeks, have you been actively looking for work? No 10/22/2024 Living Situation Answer Date Recorded What is your living situation? 0 10/22/2024 Sex and Gender Information Value Date Recorded Sex Assigned at Male 09/03/2024 10:04 AM EST Legal Sex Male 3:18 AM EST Gender Identity Male 09/03/2024 10:04 AM EST Sexual Orientation Straight 09/03/2024 10 :04 AM EST Obstetrics History Last Filed Vital Signs Vital Sign Reading Time Taken Comments Blood Pressure 112/64 10/24/2024 3:23 PM EST Pulse 85 10/24/2024 3:08 PM EST Temperature - - Respiratory Rate - - Oxygen Saturation 96% 10/15/2024 7:47 AM EST Inhaled Oxygen Concentration - - Weight 92.4 kg (203 lb 11.2 oz) 10/24/2024 3:08 PM EST Height 185.4 cm (6' 1 ) 10/24/2024 3:08 PM EST Body Mass Index 26.87 10/24/2024 3:08 PM EST Plan of Treatment Health Maintenance Due Date Last Done Comments DTaP,Tdap,and Td Vaccines (1 - Tdap) 1974 Colorectal Cancer Screening: Colonoscopy 09/11/2022 COVID-19 Vaccine ( season) 2025 08/03/2024, 08/19/2023, 06/29/2022, Additional history exists Influenza Vaccine (#1) 2025 , 08/03/2024, 08/19/2023, Additional history exists Hypertension/CHF/CAD Annual BMP Blood Test 10/17/2025 10/17/2024, 05/24/2023 Depression Screening 10/22/2025 10/22/2024 Social Influencers of Health Screening 10/22/2025 10/22/2024 Falls Risk Assessment 10/24/2025 10/24/2024 Medicare Annual Wellness Visit 10/24/2025 10/24/2024 RSV Immunization Adult Patients (1 - 1-dose 75+ series) 2029 Cholesterol Screening (Lipid Panel) 10/26/2029 10/26/2024, 05/24/2023 Zoster Vaccines Completed 03/24/2021, 10/24/2020 Hepatitis C Screening Completed 05/24/2023 Pneumococcal Vaccine: 50+ Years Completed 05/24/2023, 10/10/2016 HIB Vaccines Aged Out No longer eligi ble based on patient's age to complete this topic HPV Vaccines Aged Out No longer eligi ble based on patient's age to complete this topic Hepatitis A Vaccines Aged Out No long er eligible based on patient's age to complete this topic Hepatitis B Vaccines Aged Out No long er eligible based on patient's age to complete this topic IPV Vaccines Aged Out No longer eligi ble based on patient's age to complete this topic MMR Vaccines Aged Out No longer eligi ble based on patient's age to complete this topic Meningococcal ACWY Vaccine Aged Out N o longer eligible based on patient's age to complete this topic Meningococcal B Vaccine Aged Out No l onger eligible based on patient's age to complete this topic RSV Immunization Patients Under 20 months Aged Out No longer eligible based on patient's age to complete this topic Varicella Vaccines Aged Out No longer eligible based on patient's age to complete this topic Procedures Procedure Name Priority Date/Time Associated Diagnosis Comments LIPID PANEL WITH REFLEX TO DIRECT LDL Routine 10/26/2024 11:05 AM EST Other hyperlipidemia BASIC METABOLIC PANEL Routine 10/17/2024 10:45 AM EST HEPATITIS C SCREENING Routine 05/24/2023 from Last 3 Months or Most Recently Relevant to Health Maintenance Results * (ABNORMAL) Lipid panel with reflex to direct LDL (10/26/2024 11:05 AM EST) Cholesterol 193 0 - 200 mg/dL LAB CHEMISTRY METHOD 10/26/2024 2:21 PM EST [facility] Triglycerides 124 0 - 150 mg/dL LAB CHEMISTRY METHOD 10/26/2024 2:21 PM EST [facility] HDL 51 >=40 mg/dL LAB CHEMISTRY METHOD 10/26/2024 2:21 PM EST [facility] LDL Calculated 117(H) 0 - 100 mg/dL LAB CHEMISTRY METHOD 10/26/2024 2:21 PM EST [facility] VLDL Cholesterol Fox 24.8 mg/dL LAB CHEMISTRY METHOD 10/26/2024 2:21 PM EST [facility] Non HDL Chol. (LDL+VLDL) 142 <145 mg/dL LAB CHEMISTRY METHOD 10/26/2024 2:21 PM EST [facility] Chol/HDL Ratio 3.8 0.0 - 4.4 LAB CHEMISTRY METHOD 10/26/2024 2:21 PM EST [facility] Blood Venous blood specimen / Unknown Venipuncture / Unknown 10/26/2024 11:05 AM EST 10/26/2024 11:05 AM EST us Kristie Agee NP LAB BLOOD ORDERABLES Final Resu lt [facility] [address] [place] [address], [place] [phone] * Basic metabolic panel (10/17/2024 10:45 AM EST) [facility] Glucose 87 70 - 99 mg/dL [facility] Blood Urea Nitrogen (BUN) 23 8 - 27 mg/dL [facility] Creatinine 1.12 0.76 - 1.27 mg/dL [facility] eGFR 71 >59 mL/min/1.7 3 [facility] BUN/Creatinine Ratio 21 10 - 24 [facility] Sodium 143 134 - 144 mmol/L [facility] Potassium 5.1 3.5 - 5.2 mmol/L [facility] 1 Chloride 102 96 - 106 mmol/L [facility] Carbon Dioxide 27 20 - 29 mmol/L [facility] Calcium 10.1 8.6 - 10.2 mg/dL [facility] 1 10/17/2024 10:4 5 AM EST 10/17/2024 Narrative [facility] - 10/18/2024 4:06 AM EST Performed at: 01 - [facility] [id number] Beam Dyer: Nicole Almeida MD, Phone: [phone] us Marcus Daniel MD LAB BLOOD ORDERABLES Final Res ult [facility] * Hepatitis C Screening (05/24/2023) Hepatitis C Screening Abstracted us Historical Provider MD HEALTH MAINTENANCE Final Result from Last 3 Months or Most Recently Relevant to Health Maintenance Insurance MEDICARE [facility] Care Teams Epic Kaleidoscope Analyst Relationship Specialty Start Date End Date Kristie Agee NP [address] [place] [id number] PCP - General 02/25/23
== END 2025-04-02 15:32 | disposition home or self-care (01) ==
LOC: HO.HSMS 13:08
PROVIDERS: PCP Nurse Practitioner Primary Care; Visit Provider Nurse Practitioner Family
DX: G20.A1 Parkinson's disease without dyskinesia, without mention of fluctuations (principal); G47.52 REM sleep behavior disorder; G25.81 Restless legs syndrome; G31.84 Mild cognitive impairment of uncertain or unknown etiology
CPT/HCPCS: 99214